=== PATIENT | female | born 1960 | race Caucasian/White ===

== ENCOUNTER 2023-07-23 16:27 | Outpatient (OUT) | payer OTHER, SELFPAY ==
--- NOTE | 2023-07-23 | MM_ITS ---
Patient Name: FRANCISCO STOLL MR#: [id number] : 1960 Exam Date: 07/23/2023 Ordering Doctor: DR Ginger Madrid M.D. RADIOLOGY REPORT PROCEDURE: MM TOMOSYNTHESIS SCREENING BI COMPARISON: None. INDICATIONS: Screening for malignant neoplasm Calculator Name NCI Breast Cancer Risk Assessment Tool 5 Year Breast Cancer Risk 1.90% Lifetime Breast Cancer Risk 8.40% Personal Breast Cancer No Personal Ovarian Cancer No Treatments None Family Cancers Father with prostate cancer at age 68. LOCATION: [facility] BREAST COMPOSITION: Scattered areas fibroglandular density. FINDINGS: DIAGNOSTIC CATEGORY 1--NEGATIVE. RIGHT BREAST: No significant suspicious finding. LEFT BREAST: No significant suspicious finding. RECOMMENDATIONS: ROUTINE MAMMOGRAM AND CLINICAL EVALUATION IN 12 MONTHS. PLEASE NOTE: A NORMAL MAMMOGRAM DOES NOT EXCLUDE THE POSSIBILITY OF BREAST CANCER. A CLINICALLY SUSPICIOUS PALPABLE LUMP SHOULD BE BIOPSIED. Dictated by: Blayne Winn M.D. on 07/24/2023 at 14:08 Approved by: Blayne Winn M.D. on 07/24/2023 at 14:10
== END 2023-07-23 16:28 | disposition home or self-care (01) ==
LOC: MAMMO 16:28
PROVIDERS: PCP Family Medicine; Visit Provider Family Medicine
DX: Z12.31 Encounter for screening mammogram for malignant neoplasm of breast (principal); Z80.42 Family history of malignant neoplasm of prostate
CPT/HCPCS: 77063; 77067